=== PATIENT | male | born 1990 | race Two or more races ===

== ENCOUNTER 2022-09-24 07:02 | Emergency (ER) | payer SELFPAY ==
[2022-09-24] MEDS ORDERED: Ibuprofen 600 MG Tab PO ONE (07:48)
== END 2022-09-24 09:21 | disposition home or self-care (01) ==
LOC: MW.ED 07:02
DX: M54.50 Low back pain, unspecified (principal); W00.0XXA Fall on same level due to ice and snow, initial encounter
CPT/HCPCS: 72072; 72100; 99283; A9270